=== PATIENT | female | born 1995 | race Caucasian/White ===

== ENCOUNTER 2025-02-16 09:24 | Outpatient (AMB) | payer OTHER, SELFPAY ==
--- NOTE | 2025-02-16 09:27 | A.OFFVIS_ITS ---
Vital Signs 02/16/25 09:29 Height 5 ft 2 in Weight 249 lb 4 oz BMI 45.6 BP 106/70 Blood Pressure Location Rt brachial Position Sitting Pulse 73 Pulse Source Pulse Oximeter Pulse Oximetry (%) 99 Oxygen Delivery Method Room Air Intake Visit Reasons: Asthma Allergies azithromycin (From Zithromax) Allergy (Mild, Verified 02/16/25 09:32) Rash HPI HPI Asthma: Details: Mariposa is pleasant 30 year old, never smoker, with underlying childhood asthma and GERD. She was referred by PCP for pulmonary evaluation. She has had asthma since childhood, with a consistent presence of symptoms that have worsened in adulthood. The patient reports using Wixela 500 for the past month, with a recent increase in dosage. She experiences dyspnea, particularly when unable to take a deep breath, although her symptoms are currently stable. She denies wheezing or coughing at present but reports occasional shortness of breath both at rest and during activity. The patient has a family history of asthma, with both her mother and father affected. She denies any occupational exposures or allergies that exacerbate her asthma, although hot and humid weather worsens her symptoms. She reports no recent use of prednisone, although she typically requires it three to four times a year, mostly in the summer. The patient denies smoking but endorses secondhand smoke exposure. [facility] Social History (Updated 02/16/25 @ 09:32 by Marisol Hernandez [facility]) Patient Tobacco Use Status: Never used Tobacco Review of Systems Const Denies chills, Denies excessive sweating, Denies fever(s), Denies headache(s) and Denies night sweats Eyes Denies dry eyes, Denies irritation and Denies itchy eyes ENT Reports Normal hearing present, Denies headache(s), Denies nasal congestion, Denies nasal discharge, Denies post nasal drip and Denies sore throat Card Denies chest pain, Denies chest pain at rest, Denies chest pain with activity, Denies claudication, Denies leg edema, Denies dyspnea, Denies dyspnea on exertion, Denies orthopnea and Denies paroxysmal nocturnal dyspnea Resp Denies chest congestion, Denies cough, Denies excessive phlegm production, Denies pain on inspiration, Denies pain with cough, Denies dyspnea, Denies dyspnea on exertion, Denies stridor and Denies wheezing Musc Denies myalgias Neuro Reports Normal hearing present and Denies headache(s) Endo Denies excessive sweating Taiwo/Lymph Denies lymphadenopathy Aller/Immun Denies itchy eyes, Denies seasonal rhinorrhea and Denies wheezing Physical Exam Vital Signs: Last Vital Signs Pulse 73 02/16/25 09:29 BP 106/70 02/16/25 09:29 Pulse Ox 99 02/16/25 09:29 Oxygen Delivery Method Room Air 02/16/25 09:29 BMI result Body Mass Index 45.6 Const General: cooperative, healthy appearing, comfortable, no acute distress, well developed and alert Nutritional Appearance: obese Orientation/consciousness: patient oriented x3 Limitations: no limitations HEENT Head: Yes normal to inspection, Yes normocephalic and Yes atraumatic Ears: hearing grossly normal bilaterally and external ears normal Eyes General: appearance normal, both eyes and all related structures Eyelids: Yes eyelids normal Sclerae: sclerae normal EOM: EOMs intact bilaterally Neck Neck: Yes normal visual inspection and Yes no lymphadenopathy Lymphatic: no lymphadenopathy noted Chest Chest palpation & inspection: normal inspection of the chest Resp Effort & Inspection: normal respiratory effort, able to speak in complete sentences, no audible wheezes, no cough, no stridor, not tachypneic, no tripod positioning and no use of accessory muscles Auscultation: clear to auscultation bilaterally Cardio Jugular venous distension: no JVD Rate: regular rate Rhythm: regular rhythm Skin Other: warm, dry General skin exam: no rashes or lesions noted Neuro General: patient oriented x3 Cranial nerves: Yes Normal hearing present Cognition (Neuro): normal cognition Gait exam (Neuro): Normal gait present Extrem General: Yes normal to inspection, Yes capillary refill normal, Yes no clubbing, cyanosis or edema and Yes no pedal edema Psych Appearance: grossly normal and well kempt Speech and movement: Normal speech and movement present and Clear speech present Affect: normal affect Attitude: cooperative Thought process: Normal thought process present Thought content: Normal thought content present Insight: Good insight present (Psych) Judgement: Good judgement present (Psych) Assessment & Plan Assessment & Plan (1) Asthma: Code(s): J45.909 - Unspecified asthma, uncomplicated Category: Medical (2) Dyspnea: Code(s): R06.00 - Dyspnea, unspecified Category: Medical Plan Discussed with the patient the importance of continuing her current medication regimen and the plan to conduct a pulmonary function test to evaluate her asthma further. Will also send for CXR as patient feels restricted in breathing, with inability to fully inspire. We discussed the potential need for adjustments in her treatment based on test outcomes and her symptoms over the next few months. Advised her to contact us if her symptoms worsen. All questions were answered and patient is in agreement of plan. Will follow up to review results or sooner if needed. Orders: Orders XR chest 2V Today R06.00 - Dyspnea, unspecified PFT pulmonary function test Today J45.909 - Unspecified asthma, uncomplicated Coding Level of Care Code New Pt Level 3 (39973) Diagnoses Asthma J45.909 Dyspnea R06.00
[2025-02-16 09:29] VITALS: BP 106/70; PULSE 73; O2SAT 99; BMI 45.6
--- OUTSIDE RECORDS SUMMARY | 2025-02-16 10:19 | XMS_ITS | Clinical Summary ---
Author Organization [address] [place] [address] [place] [id number] Phone Care Team Providers Care Third Steel Pourer Name Role Phone Aranza Jacobs NP Primary Care Provider [phone] Allergies Active Allergy Reactions Criticality Noted Date Comments Azithromycin Other 04/11/2017 Medications albuterol 2.5 mg /3 mL (0.083 %) nebulizer solution Take 1 Vial by nebulization every 6 hours as needed for Wheezing. 11/22/19 19 Active ibuprofen (ADVIL,MOTRIN) 800 mg tablet Take 1 Tab by mouth 3 times daily (with meals) for 7 days. 03/12/20 19 Active escitalopram (LEXAPRO) 5 mg tabletIndications :Anxiety Take 1 tablet (5 mg total) by mouth 1 (one) time each day. 12/26/19 24 Active fluticasone-salme terol (ADVAIR DISKUS) 250-50 mcg/dose diskus inhalerIndication s:Asthma in adult, mild intermittent, uncomplicated Inhale 1 puff by mouth 2 (two) times a day. Rinse mouth with water after use to reduce aftertaste and incidence of candidiasis. 3 each 1 04/14/20 24 Active albuterol HFA (PROAIR HFA ; PROVENTIL HFA ; VENTOLIN HFA) 90 mcg/actuation inhalerIndication s:Asthma in adult, mild intermittent, uncomplicated INHALE 2 PUFFS BY MOUTH EVERY 6 HOURS NEEDED FOR WHEEZE 8.5 each 1 05/19/19 25 Active Active Problems Problem Noted Date Diagnosed Date Class 2 obesity due to exces s calories without serious comorbidity with body mass index (BMI) of 36.0 to 36.9 in adult 03/06/2024 Urinary frequency 06/09/2021 Overview (03/06/2024): Last Assessment & Plan: Will send urine culture. Treat prn. Vaginal discharge 06/09/2021 Overview (03/06/2024): Last Assessment & Plan: No current evidence of infection. Will send GC/CT, trichomonas, and treat prn. Mild persistent asthma with acute exacerbation 0 01/13/2019 GERD (gastroesophageal reflux disease) 7 Anxiety 04/11/2017 Dysmenorrhea 04/11/2017 Eczema 04/11/2017 Encounters Date Type Department Care Team Description 02/15/2025 Telephone Gastroenterology - [address] [place] [address] Souleymane Amezcua MD from Last 3 Months Immunizations Immunization Administration Dates Next Due DTaP (Infanrix) 6wks to less than 7yo ,08/01/1995,1994,05/31,1994 [id number]-GUB-TPQ (Pentacel) 2mo to less than 5yo 05/16/1995,1994,1994,04/02 HPV, Quadrivalent 11/15/2006,07/23/2006,05/31/19 07 Hepatitis A Pediatric (Havri x; Vaqta) 12mo to less than 19yo 09/11/2011,07/12/2010 Hepatitis B Pediatric (Enger ix B; Recombivax HB) to less than 20 yo 1994,1994,1994 IPV Inactivated polio (Ipol) 6wks and older 02/21/1998,1994,1994,04/02 Influenza Quadravalent, justice mbinant, 0.5ml, preservative free (Flublok) 18yo and older 04/13/2024 Influenza trivalent, 0.5mL, preservative free (Fluarix; FluLaval; Fluzone) ages 6mo and older (Afluria) 3 years and older 01/25/2020 MMR, measles mumps and rubel la Live (Priorix; M-M-R II) 12mo and older 01/11/1998,05/16/1995 Meningococcal MCV4P 07/12/2010,11/22/2006 Pneumococcal polysaccharide 23 valent (Pneumovax 23) 2yo and older 04/12/2017 Td Tetanus diptheria (Tdvax) 7yo and older 11/01/2016 Tdap Tetanus diptheria acell ular pertussis (Boostrix; Adacel) 7yo and older 02/15/2006 Varicella live (Varivax) 12m o and older 06/29/2008,09/24/2006 Surgical History Surgery Date Site/Laterality Comments TONSILLECTOMY 02/27/2016 PROCEDURE: HISTORICAL TONSILLECTOMY OTHER SURGICAL HISTORY PROCEDURE: HISTORICAL EAR SURGERY; COMMENT: bilateral myringotomy tubes Medical History Medical History Date Comments Anxiety 04/11/2017 DX:Anxiety Asthma 04/11/2017 DX:Asthma Dysmenorrhea 04/11/2017 DX:Dysmenorrhea Eczema 04/11/2017 DX:Eczema GERD (gastroesophageal reflux disease) 04/12/2017 DX:GERD (gastroesophageal reflux disease) Family History Medical History Relation Name Comments Other: esophageal cancer Father dx at stage 4, age 44 Heart attack Maternal Grandfather Hypertension Maternal Grandfather Rheum arthritis Maternal Grandfather Arthritis Maternal Grandmother COPD Maternal Grandmother Coronary artery disease Maternal Grandmother Hyperlipidemia Maternal Grandmother Hypertension Maternal Grandmother Other: A-Fib Maternal Grandmother Depression Mother Other: breast lumps Mother x3 benig n Diabetes Paternal Grandfather Heart attack Paternal Grandfather Diabetes Paternal Grandmother No Known Problems Sister 1 No Known Problems Sister 2 No Known Problems Sister 3 Leukemia Uncle paternal Breast cancer Neg Hx Colon cancer Neg Hx Ovarian cancer Neg Hx Prostate cancer Neg Hx Relation Name Status Comments Father Maternal Grandfather Maternal Grandmother Alive Mother Alive Paternal Grandfather Alive Paternal Grandmother Alive Sister 1 Alive Sister 2 Alive Sister 3 Alive Uncle Social History Tobacco Use Types Packs/Day Years Used Date Smoking Tobacco: Never Smokeless Tobacco: Never Tobacco Cessation:Counseling Given: Not Answered Alcohol Use Standard Drinks/Week Comments No 0 (1 standard drink = 0.6 oz pur e alcohol) Housing Instability Answer Date Recorde d Are you worried that in the next 2 months you may not have stable housing? No 04/08/2024 Food Access & Nutrition Answer Date Rec orded Do you have access to a vari ety of food including fruits and vegetables? Yes 04/08/2024 Access to Healthcare Answer Date Record ed Within the last 3 months, ho w many times did you visit the emergency department for your medical care? 0 04/08/2024 Health Literacy Answer Date Recorded How often do you need to hav e someone help you when you read instructions, pamphlets, or other written material from your doctor or pharmacy? Never 04/08/2024 Caregiver: How often do you need to have someone help you when you read instructions, pamphlets, or other written material from your doctor or pharmacy? Not on file 04/08/2024 Financial Risk Answer Date Recorded How hard is it for you to pa y for the very basics like food, housing, medical care, and air conditioning / heating? Not very hard 04/08/2024 Transportation Answer Date Recorded Has the lack of transportati on kept you from meetings, work, or from getting things needed for daily living? No Has the lack of transportati on kept you from medical appointments or from getting medications? No 04/08/2024 Social Isolation Answer Date Recorded How often do you feel lonely or isolated from those around you? Sometimes 04/08/2024 Food Risk Answer Date Recorded Within the past 12 months we worried whether our food would run out before we got money to buy more. Never true 04/08/2024 Within the past 12 months th e food we bought just didn't last and we didn't have money to get more. Never true 04/08/2024 Dependent Care Answer Date Recorded Do you need help finding or paying for care for your loved ones. For example, childcare worker or elderly care for an older adult? No 04/08/2024 Education Answer Date Recorded Do you think completing more education or training, like finishing a GED, going to college, or learning a trade, would be helpful for you? No 04/08/2024 Employment and Income Answer Date Recor ded During the last four weeks, have you been actively looking for work? No 04/08/2024 Living Situation Answer Date Recorded What is your living situation? Unrecognized valu e 04/08/2024 Comments No Sex and Gender Information Value Date Recorded Sex Assigned at Not on file Legal Sex Female 8:18 AM EST Gender Identity Not on file Sexual Orientation Not on file Obstetrics History Last Filed Vital Signs Vital Sign Reading Time Taken Comments Blood Pressure 112/70 04/14/2024 8:55 AM EST Pulse 79 04/14/2024 8:55 AM EST Temperature 36.9 C (98.4 F) 03/23/2024 2:07 PM EST Respiratory Rate - - Oxygen Saturation 98% 03/23/2024 2:07 PM EST Inhaled Oxygen Concentration - - Weight 106 kg (232 lb 14.4 oz) 04/14/2024 8:55 A M EST Height 157.5 cm (5' 2 ) 04/14/2024 8:55 AM EST Body Mass Index 42.6 04/14/2024 8:55 AM EST Plan of Treatment Upcoming Encounters Date Type Department Care Team (Late st Contact Info) Description 08/30/2025 9:00 AM EDT Consult Gastroenterology - [place] [address] [place] [id number] Krystina Simental, KIRSTIE 175 [facility] [address] [place] [address] Health Maintenance Due Date Last Done Comments Cervical Cancer Screening: Pap Smear 10/15/2021 10/15/2018, 10/15/2018, 10/15/2018 Cholesterol Screening (Lipid Panel) 01/31/2023 01/31/2018 Depression Screening 05/06/2024 04/08/2024 COVID-19 Vaccine ( season) 2025 07/01/2021, 09/24/2020, 09/03/2020 Influenza Vaccine (#1) 2025 , 03/15/2023, 02/08/2022, Additional history exists Social Influencers of Health Screening 04/08/2025 04/08/2024 DTaP,Tdap,and Td Vaccines (9 - Td or Tdap) 10/08/2030 10/08/2020, 11/01/2016, 02/15/2006, Additional history exists RSV Immunization Adult Patients (1 - 1-dose 75+ series) 2069 Hepatitis B Vaccines Completed 1994, 1994, 1994 HIB Vaccines Completed 05/16/1995, 05/06, 1994, Additional history exists MMR Vaccines Completed 01/11/1998, 05/16/1995 IPV Vaccines Completed 02/21/1998, 05/06, 1994, Additional history exists HPV Vaccines Completed 11/15/2006, 07/05, 05/31/2006 Varicella Vaccines Completed 06/29/2008, 09/24/2006 Meningococcal ACWY Vaccine Completed 07/12/2010, Hepatitis A Vaccines Completed 09/11/2011, 07/13/19 11 Pneumococcal Vaccine: Pediatrics (0 to 5 Years) and At-Risk Patients (6 to 49 Years) Discontinued 04/12/2017 HIV Screening Completed 07/16/2018 Hepatitis C Screening Completed 07/16/2018 Meningococcal B Vaccine Aged Out No l onger eligible based on patient's age to complete this topic RSV Immunization Patients Under 20 months Aged Out No longer eligible based on patient's age to complete this topic Procedures Procedure Name Priority Date/Time Associated Diagnosis Comments PAP SMEAR Routine 10/15/2018 HEPATITIS C SCREENING Routine 07/16/2018 HIV SCREENING Routine 07/16/2018 LIPID PANEL Routine 01/31/2018 from Last 3 Months or Most Recently Relevant to Health Maintenance Results * Pap smear (10/15/2018) 10/15/2018 Narrative HISTORICAL TESTING LAB RESULTING AGENCY - 10/22/2018 12:05 PM EDT [id number] THINPREP PAP, IMAGED: ATYPICAL SQUAMOUS CELLS OF UNDETERMINED SIGNIFICANCE (ASCUS) . VERN KATE(ASCP) (CASE SCREENED 10 17 2018) VIRGEN CUMMINGS M.D. , PATHOLOGIST (CASE ELECTRONICALLY SIGNED 10 21 2018) RESULT OF APTIMA HIGH RISK HPV ASSAY: HIGH RISK HPV: NEGATIVE (SEROTYPES 16,18,31,33,35,39,45,51,52,56,58,59,66,68) COMPLETED ON 2018-10-21 ADEQUACY: SATISFACTORY ENDOCERVICAL/TRANSFORMATION ZONE COMPONENT PRESENT. SOURCE: THINPREP PAP HPV IF ASCUS, CERVICAL, IMAGED CLINICAL INFORMATION: HPV IF DIAGNOSIS OF ASCUS. Z12.4, Z01.419 Sade Soto CNM LAB CYTOLOGY ORDERABLES Final R esult HISTORICAL TESTING LAB RESULTING AGENCY * HIV Screening (07/16/2018) HIV Screening Abstracted Historical Provider HEALTH MAINTENANCE Final Result * Hepatitis C Screening (07/16/2018) Pathologist [facility] Hepatitis C Screening Abstracted Historical Provider HEALTH MAINTENANCE Final Result * (ABNORMAL) Lipid panel (01/31/2018) LDL/HDL Ratio 5(A) 0 - 4 Triglycerides 88 0 - 150 mg/dL Cholesterol 159 0 - 200 mg/dL HDL 30(A) >=40 mg/dL LDL Cholesterol 112(A) 0 - 100 mg/dL Blood Venous blood specimen / Unknown Historical Provider LAB BLOOD ORDERABLES Shanthi l Result from Last 3 Months or Most Recently Relevant to Health Maintenance Insurance [facility] Care Teams Third Steel Pourer Relationship Specialty Start Date End Date Aranza Jacobs NP [address] [facility] [address] [place] [address] PCP - General Family Medicine 02/15/25
--- OUTSIDE RECORDS SUMMARY | 2025-02-16 10:19 | XMS_ITS | Encounter Summary ---
Author Organization [facility] [place] [address] Care Team Providers Care Fence Post Cutter Name Role Phone Aranza Jacobs NP Primary Care Provider [phone] Encounter Details Date Type Department Care Team ([facility] Contact Info) Description 02/15/2025 Telephone Gastroenterology - [address] [id number] Souleymane Amezcua MD [address] [address] Social History Tobacco Use Types Packs/Day Years Used Date Smoking Tobacco: Never Smokeless Tobacco: Never Alcohol Use Standard Drinks/Week Comments No 0 [...] care for your loved ones. For example, child care sitter or elderly care for an older adult? [...] on file Sexual Orientation Not on file documented as of this encounter Progress Notes * Tara Schmidt - 02/15/2025 11:34 AM EDT Referral received from Aranza Jacobs office for gerd,epigastric pain. Pt booked for 08/30/25 documented in this encounter Plan of Treatment Upcoming Encounters Date Type Department Care Team (Late st Contact Info) Description 08/30/2025 9:00 AM EDT Consult Gastroenterology - [place] [address] [place] [address] Krystina Simental NP 175 [facility] 200 [place] [address] documented as of this encounter Visit Diagnoses Not on filedocumented in this encounter Additional Health Concerns Assessment Noted Time PHQ-9 Depression Total Score: 1 04/08/20 24 7:37 PM EST documented as of this encounter Care Teams Fence Post Cutter Relationship Specialty Start Date End Date Aranza Jacobs NP [address] [facility] [address] [place] [address] PCP - General Family Medicine 02/15/25 documented as of this encounter
--- OUTSIDE RECORDS SUMMARY | 2025-02-16 10:19 | XMS_ITS | Clinical Summary ---
Author Organization [facility] Address [address] [place] [address] Phone Care Team Providers Care U.[employer]. Revenue Officer Name Role Phone Nida Ryan MD Primary Care Provider [phone] Allergies Active Allergy Reactions Criticality Noted Date Comments Azithromycin 04/11/2017 Other Reaction(s): rash, Rash/Dermatitis Medications ondansetron (ZOFRAN) 4 MG tablet Take 4 mg by mouth. 03/15/2022 Active omeprazole (PRILOSEC) 20 MG capsule Take 1 capsule by mouth daily. 03/15/2022 Active cholecalciferol (VITAMIN D3) 2,000 unit capsule Take 1 tablet by mouth. 03/15/2022 Active albuterol 90 mcg/actuation inhaler Inhale 2 puffs into the lungs every 6 (six) hours as needed for wheezing. Active Active Problems No known active problems Immunizations Immunization Administration Dates Next Due COVID-19 (Pre-02/25) Pfizer Vaccine, mRNA, PF 07/01/2021,09/24/2020,09/03/2020 Influenza Quadrivalent Prese rvative Free IM 03/15/2023,02/08/2022,02/06/2021,2019,01/25/2020 MMR 01/11/1998,01/11/1998 Varicella 06/29/2008,06/29/2008 Social History Tobacco Use Types Packs/Day Years Used Date Smoking Tobacco: Never Smokeless Tobacco: Never Tobacco Cessation:Counseling Given: Not Answered Education Answer Date Recorded Are you interested in more education? Not on angelica e 08/31/2022 Are you concerned about learning? Not on file 08/31/2022 No 08/31/2022 No 08/31/2022 Digital Access Answer Date Recorded No 09/29/2022 No 09/29/2022 Reliable internet access at home? Not on file 09/29/2022 Device with a working camera? Not on file Comments Unknown Sex and Gender Information Value Date Recorded Sex Assigned at Not on file Legal Sex Female 8:24 AM EDT Gender Identity Not on file Sexual Orientation Not on file Last Filed Vital Signs Vital Sign Reading Time Taken Comments Blood Pressure 101/72 04/23/2023 8:18 AM EST Pulse 82 04/23/2023 8:18 AM EST Temperature 36.7 C (98.1 F) 04/23/2023 8:18 AM EST Respiratory Rate 18 04/23/2023 8:18 AM EST Oxygen Saturation 100% 04/23/2023 8:18 AM EST Inhaled Oxygen Concentration - - Weight 97.5 kg (215 lb) 04/23/2023 8:18 AM EST p er pt Height 157.5 cm (5' 2 ) 10/18/2020 9:50 AM EDT Body Mass Index 39.32 10/18/2020 9:50 AM EDT Plan of Treatment Health Maintenance Due Date Last Done Comments DEPRESSION SCREENING 2006 HEPATITIS C SCREENING 01/30/2012 HIV ONE-TIME SCREENING (18-65 YEARS) 01/30/2012 PAP SMEAR 2015 INFLUENZA VACCINE (#1) 2024 , 02/08/2022, 02/06/2021, Additional history exists COVID-19 VACCINE ( season) 2025 07/01/2021, 09/24/2020, 09/03/2020 Adult Td,Tdap Booster 10/08/2030 10/08/2020 , 11/01/2016, 11/01/2016, Additional history exists HIB VACCINES Completed 05/16/1995, 05/06, 1994, Additional history exists MENINGOCOCCAL VACCINES (ACWY) Completed 07/12/2010, 11/22/2006 HEPATITIS A VACCINES Completed 09/11/2011, 07/13/19 11 PNEUMOCOCCAL VACCINES (0-49 years) Aged Out 04/12/2017 No longer eligible based on patient's age to complete this topic SMOKING STATUS SCREENING (Once After 26 Yrs) Completed 04/23/2023 MENINGOCOCCAL VACCINES (B) Aged Out N o longer eligible based on patient's age to complete this topic Medical Devices Not on file Insurance HEALTH SAFETY NET PARTIAL [facility] [place] [id number] SAF[employer]Y [employer] PART[employer] [facility] EM[employer]YEES FAMILY HEALTH SAFETY NET PARTIAL Member Subscriber Plan / Payer (Ef fective 2020-Present) Name:Mariposa Whalen Relation to Subscriber:Self Name:Mariposa Whalen Payer ID:Not on file Group ID:Not on file Type:Medicaid Address: [address] EMPLOYEES FAMILY NET PARTIAL Member Subscriber Plan / Payer (Ef fective 2020-Present) Name:Mariposa Whalen Relation to Subscriber:Self Name:Mariposa Whalen Payer ID:Not on file Group ID:Not on file Type:Medicaid Address: [address] EMPLOYEES FAMILY [employer] SAF[employer] NET PARTIAL Member Subscriber Plan / Payer (Ef fective 2020-) Name:Mariposa Whalen Relation to Subscriber:Self Name:Mariposa Whalen Payer ID:Not on file Group ID:Not on file Type:Medicaid Address: [address] EMPLOYEES FAMILY [employer] SAFETY NET PARTIAL [employer] EMPLOYEES FAMILY HEALTH SAFETY NET PARTIAL Member Subscriber Plan / Payer (Ef fective 2020-Present) Name:Mariposa Whalen Relation to Subscriber:Self Name:Mariposa Whalen Payer ID:Not on file Group ID:Not on file Type:Medicaid Address: [address] EMPLOYEES FAMILY [employer] SAFETY NET PARTIAL [facility] EMPLOYEES FAMILY NET PARTIAL [employer] EM[employer]OYEES FAMILY Care Teams U.[employer]. Revenue Officer Relationship Specialty Start Date End Date Nida Ryan MD [address] [place] [id number] PCP - General Internal Medicine 10/18/20 Additional Source Comments The information contained in this document represents components of the legal health record. It is not the complete legal health record.[facility]
--- OUTSIDE RECORDS SUMMARY | 2025-02-16 10:19 | XMS_ITS | Encounter Summary ---
Author Organization [facility] Address [address] [place] [phone] Phone Care Team Providers Care Re Etcher Name Role Phone Nida Ryan MD Primary Care Provider [phone] Encounter Details Date Type Department Care Team (Latest Contact Info) Description 05/08/2021 Transcribe Orders Virtual Department [address] [place] [phone] Anthony Andrew MD, MPH [address] [place] [phone] [email or web address] Runny nose (Primary Dx); Body aches Social History Tobacco Use Types Packs/Day Years Used Date Smoking Tobacco: Never Assessed Comments Unknown Sex and Gender Information Value Date Recorded Sex Assigned at Not on file Legal Sex Female 8:24 AM EDT Gender Identity Not on file Sexual Orientation Not on file documented as of this encounter Plan of Treatment Pending Results Name Type Priority Associated Diagnoses Date /Time COVID-19 PCR Order Lab Routine Runny nose Body aches 05/08/2021 1:20 PM EST documented as of this encounter Visit Diagnoses Diagnosis Runny nose- Primary Other diseases of nasal cavity and sinuses Body aches Generalized pain documented in this encounter Additional Health Concerns Infection Onset Date Last Indicated Resolved Time CoV-Risk 05/08/2021 05/08/2021 05/08/2021 5:05 PM EST COVID-19 05/08/2021 05/08/2021 05/29/2021 1:22 AM EST CoV-Exposed Comment:From [facility] 03/27/2022 03/27/2022 04/07/2022 1:22 A M EST COVID-19 04/23/2023 04/23/2023 05/14/2023 1:23 AM EST documented as of this encounter Care Teams Re Etcher Relationship Specialty Start Date End Date Nida Ryan MD [address] [place] [phone] PCP - General Internal Medicine 10/18/20 documented as of this encounter Additional Source Comments The information contained in this document represents components of the legal health record. It is not the complete legal health record.[facility]
== END 2025-02-16 09:54 | disposition home or self-care (01) ==
PROVIDERS: PCP Nurse Practitioner Family; Referring Provider Nurse Practitioner Family; Visit Provider Nurse Practitioner Family
DX: J45.909 Unspecified asthma, uncomplicated (principal); R06.00 Dyspnea, unspecified
CPT/HCPCS: 99203